=== PATIENT | female | born 1990 | race Two or more races ===

== ENCOUNTER 2020-01-12 21:16 | Emergency (ER) | payer MEDICAID ==
[~2020-01-12] VITALS: Ht 157.5 cm; Wt 81.2 kg
[2020-01-12 21:38] VITALS: BP 140/99
[2020-01-12] MEDS ORDERED: KETOROLAC TROMETH 60MG/2ML VIAL IM ONE (23:00)
[2020-01-13] MEDS ORDERED: methylPREDNISolone SOD SUCC 125 MG/2 ML VL IM ONE (00:07)
== END 2020-01-13 00:58 | disposition home or self-care (01) ==
LOC: ER 21:22
DX: G43.909 Migraine, unspecified, not intractable, without status migrainosus (principal)
CPT/HCPCS: 70450; 96372; 99284; J1885; J2930